=== PATIENT | male | born 2000 | race Caucasian/White ===

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

== ENCOUNTER 2018-03-25 03:19 | Emergency (ER) | payer MEDICAID, OTHER ==
[2018-03-25 03:38] VITALS: BP 134/76
[2018-03-25] MEDS ORDERED: PENICILLIN VK 250 MG TABLET PO STA (04:03)
[2018-03-25] MEDS ORDERED: DEXAMETHASONE 10 MG/ML VIAL PO STA (04:03)
[2018-03-25] MEDS ORDERED: IBUPROFEN 800 MG TABLET PO STA (04:04)
--- NOTE | 2018-03-25 04:05 | ED Physician Documentation ---
History of Present Illness - Stated complaint Stated Complaint: SORE THROAT - Chief complaint Chief Complaint: Heent - History obtained from History obtained from: Patient - History of Present Illness Timing: Yesterday Pain level max: 8 Pain level now: 8 - Additonal information Additional information: 17-year-old male with a sore throat since yesterday. No fevers. No coughing. Does feel like his lymph nodes were swollen. Pain not improved with Tylenol. Worse with swallowing. Nothing makes it better. No rhinorrhea, congestion, ear pain, etc. Review of Systems Constitutional: denies: Fever Nose: denies: Rhinorrhea / runny nose, Congestion Respiratory: denies: Cough GI: denies: Abdominal Pain, Vomiting, Diarrhea Skin: denies: Rash Musculoskeletal: denies: Neck pain, Back pain Neurologic: denies: Headache PD PAST MEDICAL HISTORY - Past Medical History Past Medical History: No - Past Surgical History Past Surgical History: Yes HEENT: Myringotomy (tubes) - Present Medications Home Medications: Ambulatory Orders Medication Instructions Recorded Confirmed LORazepam [Ativan] 0.5 mg PO Q8H PRN #10 tablet 08/07/15 Acetaminophen/Cod 300/30 [Tylenol 1 each PO Q4-6H PRN #10 tablet 05/14/16 #3] Guaifenesin/Pseudoephedrne HCl 1 each PO BID PRN #20 tab.er.12h 05/14/16 [Mucinex D ER 600-60 mg Tablet] Ibuprofen [Motrin] 800 mg PO Q8H PRN #30 tablet 05/14/16 Ibuprofen [Motrin] 800 mg PO Q8H PRN #30 tablet 03/25/18 Penicillin V Potassium 500 mg PO Q6HR #40 tablet 03/25/18 - Allergies Allergies/Adverse Reactions: Allergies Allergy/AdvReac Type Severity Reaction Status Date / Time peanuts Allergy Anaphylaxis Uncoded 03/25/18 03:38 - Social History Does the pt smoke?: No Smoking Status: Never smoker Does the pt drink ETOH?: No Does the pt have substance abuse?: No - Immunizations Immunizations are current?: Yes - POLST Patient has POLST: No PD ED PE NORMAL - Vitals Vital signs reviewed: Yes - General General: Alert and oriented X 3, No acute distress - HEENT HEENT: PERRL, Ears normal, Moist mucous membranes, Other (Posterior pharyngeal erythema with tonsillar exudates. Uvula midline. No peritonsillar abscess. Normal phonation. No trismus) - Neck Neck: Supple, no meningeal sign, Other (Shotty anterior lymphadenopathy) - Cardiac Cardiac: RRR, Strong equal pulses - Respiratory Respiratory: No respiratory distress, Clear bilaterally - Abdomen Abdomen: Soft, Non tender, Non distended, No organomegaly - Back Back: No CVA TTP - Derm Derm: Warm and dry, No rash - Extremities Extremities: No edema - Neuro Neuro: Alert and oriented X 3 Results - Vitals Vitals: Vital Signs - 24 hr 03/25/18 03:25 Temperature 36.6 C Heart Rate 84 Respiratory 16 Rate Blood Pressure 134/76 H O2 Saturation 98 Oxygen O2 Source Room air - Labs Labs: Laboratory Tests 03/25/18 03:24 Group A Strep Rapid Negative PD MEDICAL DECISION MAKING - ED course Complexity details: reviewed results, considered differential, d/w patient ED course: 17-year-old male with what appears to be pharyngitis. Likely streptococcal based on the clinical exam. Rapid strep is negative, but given the poor test characteristics, will treat based on clinical symptomology. Also given dexamethasone. Patient is well-appearing, nontoxic. Afebrile. Well-hydrated. Patient counseled regarding signs and symptoms for which I believe and urgent re-evaluation would be necessary. Patient with good understanding of and agreement to plan and is comfortable going home at this time This document was made in part using voice recognition software. While efforts are made to proofread this document, sound alike and grammatical errors may occur. Departure - Departure Disposition: 01 Home, Self Care Clinical Impression: Pharyngitis Qualifiers: Pharyngitis/tonsillitis etiology: unspecified etiology Qualified Code(s): J02.9 - Acute pharyngitis, unspecified Condition: Good Instructions: ED Strep Pharyngitis Poss Follow-Up: your,doctor in 1 week if not better [Other] Prescriptions: Penicillin V Potassium 500 mg PO Q6HR #40 tablet Ibuprofen [Motrin] 800 mg PO Q8H PRN #30 tablet PRN Reason: PAIN &/OR FEVER Comments: Go home and rest. Drink plenty of fluids. Take all antibiotics until gone. Return if you worsen Forms: Activity restrictions Discharge Date/Time: 03/25/18 04:13
== END 2018-03-25 04:13 | disposition home or self-care (01) ==
LOC: ED 03:19
DX: J02.9 Acute pharyngitis, unspecified (principal)
CPT/HCPCS: 87070; 87077; 87430; 99283; A9270

== ENCOUNTER 2018-03-29 19:07 | Emergency (ER) | payer OTHER ==
[2018-03-29] MEDS ORDERED: OXYMETAZOLINE NASAL SPRAY NAS STA (20:11)
[2018-03-29] MEDS ORDERED: DEXAMETHASONE 10 MG/ML VIAL PO STA (20:11)
[2018-03-29] MEDS ORDERED: LIDOCAINE VISCOUS 2% 15 ML UDC MM STA (20:11)
--- NOTE | 2018-03-29 20:21 | ED Physician Documentation ---
PD HPI HEENT - Stated complaint Stated Complaint: SOA - Chief complaint Chief Complaint: Resp - History obtained from History obtained from: Patient - History of Present Illness Timing - onset: How many days ago (3) Timing - duration: Days (3) Timing - details: Gradual onset Pain level max: 3 Pain level now: 3 Severity Comments: mild Location: Right ear, Left ear, Sinuses, Throat Improves: Nothing Worsens: Swalllowing Associated symptoms: Fever, Congestion, Rhinorrhea, Swollen nodes. No: Trismus, Unable to swallow Review of Systems Ten Systems: 10 systems reviewed and negative Constitutional: reports: Reviewed and negative Eyes: reports: Reviewed and negative Ears: reports: Reviewed and negative Nose: reports: Reviewed and negative Throat: reports: Reviewed and negative Cardiac: reports: Reviewed and negative Respiratory: reports: Reviewed and negative GI: reports: Reviewed and negative : reports: Reviewed and negative Skin: reports: Reviewed and negative Musculoskeletal: reports: Reviewed and negative Neurologic: reports: Reviewed and negative Psychiatric: reports: Reviewed and negative Endocrine: reports: Reviewed and negative Immunocompromised: reports: Reviewed and negative PD PAST MEDICAL HISTORY - Past Medical History Other Past Medical History: Reviewed and not pertinent - Past Surgical History Past Surgical History: Yes HEENT: Myringotomy (tubes) Other past surgical history: Reviewed and not pertinent - Present Medications Home Medications: Ambulatory Orders Medication Instructions Recorded Confirmed Ibuprofen [Motrin] 800 mg PO Q8H PRN #30 tablet 03/25/18 Penicillin V Potassium 500 mg PO Q6HR #40 tablet 03/25/18 Lidocaine Viscous 2% [Xylocaine 15 ml MM Q4H #1 bottle 03/29/18 Viscous 2%] Pseudoephedrine HCl [Sudafed 12 120 mg PO BID #24 tablet.er 03/29/18 Hour] - Allergies Allergies/Adverse Reactions: Allergies Allergy/AdvReac Type Severity Reaction Status Date / Time peanuts Allergy Anaphylaxis Uncoded 03/29/18 19:14 - Living Situation Living Situation: reports: With family Living Arrangement: reports: At home - Social History Does the pt smoke?: No Smoking Status: Never smoker Does the pt drink ETOH?: No Does the pt have substance abuse?: No - Family History Family history: reports: Other (Reviewed and not pertinent) - Immunizations Immunizations are current?: Yes - POLST Patient has POLST: No PD ED PE NORMAL - Vitals Vital signs reviewed: Yes - General General: Alert and oriented X 3, No acute distress - HEENT HEENT: PERRL, Other (Tonsilar erythema, no exudates, no uvular deviation) - Neck Neck: Supple, no meningeal sign - Cardiac Cardiac: RRR, No murmur - Respiratory Respiratory: Clear bilaterally - Abdomen Abdomen: Normal bowel sounds, Soft, Non tender, Non distended - Derm Derm: Warm and dry - Extremities Extremities: No deformity - Neuro Neuro: Alert and oriented X 3 - Psych Psych: Normal mood, Normal affect Results - Vitals Vitals: Vital Signs - 24 hr 03/29/18 19:09 Temperature 36.7 C Heart Rate 92 Respiratory 18 Rate Blood Pressure 147/88 H O2 Saturation 99 Oxygen O2 Source Room air PD MEDICAL DECISION MAKING - ED course Complexity details: reviewed results, re-evaluated patient, considered differential, d/w patient, d/w family ED course: 17 YO male w sore throat and upper respiratory symptoms. Given dose of decadron and discharged w symptomatic treatment. Departure - Departure Disposition: 01 Home, Self Care Clinical Impression: Strep pharyngitis, Acute upper respiratory infection Condition: Good Instructions: ED Strep Pharyngitis Poss, ED Viral Syndrome Follow-Up: Your, PCP [Other] Prescriptions: Lidocaine Viscous 2% [Xylocaine Viscous 2%] 15 ml MM Q4H #1 bottle Pseudoephedrine HCl [Sudafed 12 Hour] 120 mg PO BID #24 tablet.er Comments: Use Afrin every 4 hours as needed for nasal congestion. Take Sudafed as needed for nasal congestion. Continue taking antibiotics, Tylenol, ibuprofen. Use viscous lidocaine as needed for sore throat. Follow-up with PCP within 24 hours. Return with worsening symptoms.
[2018-03-29 20:29] VITALS: BP 139/89
== END 2018-03-29 20:30 | disposition home or self-care (01) ==
LOC: ED 19:07
DX: J02.0 Streptococcal pharyngitis (principal)
CPT/HCPCS: 99283; A9270